=== PATIENT | male | born 1960 | race Caucasian/White ===

== ENCOUNTER → 2017-02-11 | Day surgery (SDC) | payer BC ==
[~2017-02-11] VITALS: Ht 182.9 cm; Wt 107.0 kg
[~2017-02-11] MED LIST: CELEXA20 MG PO; COZAAR100 MG PO; DESYREL50 MG PO; LYRICA 50MG CAP50 MG PO; MULTI VITAMIN1 EACH PO; TIMOPTIC 0.5%15 ML OPHTH; XANAX0.5 MG PO; ZYRTEC10 MG PO
--- NOTE | ~2017-02-11 | OR ---
PATIENT'S NAME: MOUNA [facility] AGE: 57 Y [address] ROOM: [place] [id number] LOCATION: [facility] ADMIT DATE: 02/11/2017 OR/Procedure Report DISCHARGE DATE: FAMILY PHYSICIAN: Armen Hua MD ATTENDING PHYSICIAN: Arik Orr SURGEON: Satnam Doty MD DEHYDRATOR TENDER: DATE OF PROCEDURE: 02/11/2017 PROCEDURE: Right ilioinguinal nerve block. 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 He has had reconstructive surgery on his hip and right inguinal hernia. Risks, benefits, and alternatives were explained to the patient, and he wished to proceed. DESCRIPTION OF PROCEDURE: He was lying supine on a stretcher. The area was viewed with ultrasound just medial to the ASIS. The external and internal oblique were identified and the area was prepped with 2% chlorhexidine. The skin was numbed with 3 mL of 1% lidocaine and a 22-gauge B-bevel needle was advanced using ultrasound guidance to the fascial plane. Once the needle was felt to be in position, 2 mL of normal saline was injected showing good spread. Then, a mixture of 9 mL of 0.25% bupivacaine and 40 mg of Depo-Medrol were injected. Needle was removed and hemostasis achieved. COMPLICATIONS: None. BLOOD LOSS: None. The patient did describe kind of a burning neuropathic pain and was started on some Lyrica 50 mg by mouth once a day and dispensed 90 tablets. SATNAM DOTY MD JJP/modl /[id number] d: 02/12/17 0158 t: 02/18/17 1501, OPERATIVE SUMMARY
== END | disposition disaster alternative care site (69) ==
LOC: GPOC 02-08 15:00 → EDSTATUS 02-10 14:00 → GSDC 02-10 14:00
PROC: 3E0T3BZ Introduction of Anesthetic Agent into Peripheral Nerves and Plexi, Percutaneous Approach (ICD-10-PCS; principal; 2017-02-11)
PROC: 3E0T33Z Introduction of Anti-inflammatory into Peripheral Nerves and Plexi, Percutaneous Approach (ICD-10-PCS; 2017-02-11)
DX: G89.29 Other chronic pain (principal); R10.9 Unspecified abdominal pain; M25.551 Pain in right hip; I10 Essential (primary) hypertension; Z87.442 Personal history of urinary calculi; Z98.890 Other specified postprocedural states; Z79.899 Other long term (current) drug therapy
CPT/HCPCS: J1030